=== PATIENT | female | born 1970 | race Caucasian/White ===

== ENCOUNTER 2018-03-22 15:47 | Emergency (ER) | payer OTHER ==
[~2018-03-22] VITALS: Ht 165.1 cm; Wt 52.2 kg
[2018-03-22 15:55] VITALS: BP_SYST 136
[2018-03-22] MEDS ORDERED: KETOROLAC TROMETHAMINE 60 MG/2 ML VIAL IM ONE (17:00)
[2018-03-22 17:05] VITALS: BP_SYST 128
== END 2018-03-22 17:50 | disposition home or self-care (01) ==
LOC: SED 15:47
DX: S32.029A Unspecified fracture of second lumbar vertebra, initial encounter for closed fracture (principal); R11.0 Nausea; Z98.51 Tubal ligation status; V43.52XA Car driver injured in collision with other type car in traffic accident, initial encounter; Y93.89 Activity, other specified; Y92.410 Unspecified street and highway as the place of occurrence of the external cause; Y99.8 Other external cause status
CPT/HCPCS: 71045; 72040; 72100; 96372; 99284; J1885